=== PATIENT | male | born 1980 | race Caucasian/White ===

== ENCOUNTER → 2017-01-20 | Outpatient (CLI) | payer BC ==
[2017-01-20 17:01] LABS: CHLORIDE,CL 96 mmol/L (98-110); SODIUM,NA 132 mmol/L (136-146)
== END ==
LOC: MW.CHRC 16:27
PROVIDERS: ATTEND Family Medicine
DX: R56.9 Unspecified convulsions (principal)
CPT/HCPCS: 36415; 80053; 80183; 83036; 84443; 85025

== ENCOUNTER 2017-06-13 15:08 | Emergency (ER) | payer BC ==
[2017-06-13] MEDS ORDERED: Sodium Chloride 0.9% 2.5 ML Syringe FLUSH PRN (15:23)
[2017-06-13] MEDS ORDERED: Sodium Chloride 0.9% 1,000 ML IV ONE (15:23)
[2017-06-13] MEDS ORDERED: Sodium Chloride 0.9% 10 ML Syringe FLUSH PRN (15:23)
--- NOTE | 2017-06-13 15:27 | EDM.PDOC ---
ED HPI GENERAL MEDICAL PROBLEM - General Chief Complaint: Neurological Problem Stated Complaint: UNK Time Seen by Provider: 06/13/17 15:10 - History of Present Illness INITIAL COMMENTS - FREE TEXT/NARRATIVE: HISTORY AND PHYSICAL: History of present illness: The patient is a 36 y/o male with a long-standing history of seizures who was on Trileptal dosing which was changed to a once a day dosing as of June [address] Rod. The patient presents via EMS after having a seizure while at work today. According to bystanders he was in his chair at his desk and he stiffened up eyes rolled back in his head and he slid off the chair onto the floor. The patient recalls feeling very tired at his desk and the next thing he remembers is the paramedics. He states he is unsure if he missed a dose of his medications. He has been eating and drinking normally and has had no chest pain fever chills upper respiratory symptoms vomiting or diarrhea. Currently in the ED he has no complaints of headache neck pain back pain chest pain abdominal pain nausea or any extremity complaints as a result of the seizure. The patient says that he did not sleep well last evening or the night before and sleep deprivation can causes seizures. He has been very excited about the possibility that his is . The patient says he doesn't usually have loss of bowel or bladder with his seizures and he denies that it happened today. He also has no tongue pain or injuries that he is aware of. The patient initially told me that he had not had a seizure in one year but upon rethinking and discussing it with his his last seizure was 5 months ago. Review of systems: As per history of present illness and below otherwise all systems reviewed and negative. Past medical history: As per history of present illness and as reviewed below otherwise noncontributory. Surgical history: As per history of present illness and as reviewed below otherwise noncontributory. Social history: No reported history of drug or alcohol abuse. Family history: As per history of present illness and as reviewed below otherwise noncontributory. Physical exam: Gen.: Well-developed well-nourished man who is nontoxic and speaking clearly in the ED. Vital signs of the note by me. HEENT: Atraumatic, normocephalic, pupils reactive, negative for conjunctival pallor or scleral icterus, mucous membranes moist, throat clear, neck supple, nontender, trachea midline. There is no evidence of any tongue abrasion or contusions. There is no scalp deformities or tenderness and there are no midline step-offs in his defects of the cervical spine Lungs: Clear to auscultation, breath sounds equal bilaterally, chest nontender. Heart: S1S2, regular rate and rhythm no overt murmurs Abdomen: Soft, nondistended, nontender. Negative for masses or hepatosplenomegaly. Negative for costovertebral tenderness. Pelvis: Stable nontender. Genitourinary: Deferred. Rectal: Deferred. Extremities: Atraumatic, full range of motion without any defects or deficits negative for cords or calf pain. Neurovascular unremarkable. Neuro: Awake, alert, oriented. Cranial nerves II through XII unremarkable. Motor and sensory unremarkable throughout. Exam nonfocal. Skin: Normal turgor no evidence of any rashes or lesions Back: There are no midline step-offs in his defects of the thoracic or lumbar spine no posterior rib tenderness and no soft tissue injury such as abrasions ecchymosis or soft tissue swelling. Diagnostics: EKG CBC CMP troponin UA CT scan of the head Therapeutics: Seizure precautions IV O2 monitor IV fluids Please note the patient brought his prescription for Trileptal which is an extended release that the prescription directions state that they are 600 mg tablets and he is supposed to take 3 tablets every day. The number of prescribed pills on the bottle is #80 and they're only #78 present. The prescription was filled on June 07, 5 days ago, so the patient clearly has not been taking his medications as he should be down 15 pills not just 2. Now is stating that he had 10 tablets of the medication left over and another bottle so he may only missed 1 dose of medication. Patient has been stable in the ED without any issues or problems. I discussed with him at length that they need to speak with Dr. Rod and see her in the clinic as potentially the once a day dosing is not appropriate for him. He tells me that when he was on the twice a day dosing of the Trileptal he was doing much better in his opinion. 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 They're comfortable with waiting to see Dr. Rod in the clinic and he will try to sleep more and rest. Impression: Breakthrough Seizure with recent medication changes stable Definitive disposition and diagnosis as appropriate pending reevaluation and review of above. - Related Data Allergies Allergy/AdvReac Type Severity Reaction Status Date / Time Penicillins Allergy Rash Verified 06/13/17 15:11 Home Meds: Home Meds Levothyroxine 175 mcg PO ACBREAKFAST 12/17/16 [History] OXcarbazepine [Oxcarbazepine] 1,800 mg PO DAILY 12/17/16 [History] Past Medical History - Past Health History Medical/Surgical History: Denies Medical/Surgical History Neurological History: Reports: Seizure Endocrine/Metabolic History: Reports: Hypothyroidism - Past Surgical History HEENT Surgical History: Reports: Tonsillectomy Musculoskeletal Surgical History: Reports: Other (See Below) Social & Family History - Family History Family Medical History: Noncontributory Cardiac: Reports: [place], Stent Oncologic: Reports: Prostate - Tobacco Use Smoking Status *Q: Never Smoker Years of Tobacco use: 1 Packs/Tins Daily: 0.1 Second Hand Smoke Exposure: No - Caffeine Use Caffeine Use: Reports: Coffee, Energy Drinks - Recreational Drug Use Recreational Drug Use: No - Living Situation & Occupation Living situation: Reports: Occupation: Employed ED ROS GENERAL - Review of Systems Review Of Systems: ROS reveals no pertinent complaints other than HPI. ED EXAM, GENERAL - Physical Exam Exam: See Below (See dictation) Course - Vital Signs Last Recorded V/S: Last Vital Signs Temp 37.1 C 06/13/17 15:15 Pulse 85 06/13/17 16:28 Resp 14 06/13/17 16:28 BP 127/71 06/13/17 16:28 Pulse Ox 99 06/13/17 16:28 - Orders/Labs/Meds Orders: Active Orders 24 hr Category Date Time Status Cardiac Monitoring [RC] . DIRECTED Care 06/13/17 15:22 Active Communication Order [RC] STAT Care 06/13/17 15:23 Active EKG Documentation Completion [RC] STAT Care 06/13/17 15:22 Active Oxygen Therapy, ED [RC] ASDIRECTED Care 06/13/17 15:22 Active Pulse Oximetry [RC] ASDIRECTED Care 06/13/17 15:22 Active Sodium Chloride 0.9% [Saline Flush] Med 06/13/17 15:23 Active 10 ml FLUSH ASDIRECTED PRN Sodium Chloride 0.9% [Saline Flush] Med 06/13/17 15:23 Active 2.5 ml FLUSH ASDIRECTED PRN Saline Lock Insert [OM.PC] Stat Oth 06/13/17 15:22 Ordered Medication Orders Sodium Chloride (Saline Flush) 10 ml FLUSH ASDIRECTED PRN PRN Reason: Keep Vein Open Last Admin: 06/13/17 15:32 Dose: 10 ml Sodium Chloride (Saline Flush) 2.5 ml FLUSH ASDIRECTED PRN PRN Reason: Keep Vein Open Last Admin: 06/13/17 15:32 Dose: 2.5 ml Labs: Laboratory Tests 06/13/17 06/13/17 06/13/17 Range/Units 15:36 15:36 15:36 WBC 9.49 (4.0-11.0) K/uL RBC 4.90 (4.50-5.90) M/uL Hgb 15.8 (13.0-17.0) g/dL Hct 44.3 (38.0-50.0) % MCV 90.4 (80.0-98.0) fL MCH 32.2 H (27.0-32.0) pg MCHC 35.7 (31.0-37.0) g/dL RDW Std Deviation 41.0 (28.0-62.0) fl RDW Coeff of Missy 13 (11.0-15.0) % Plt Count 189 (150-400) K/uL MPV 10.00 (7.40-12.00) fL Neut % (Auto) 81.2 H (48.0-80.0) % Lymph % (Auto) 10.2 L (16.0-40.0) % Stanley % (Auto) 7.3 (0.0-15.0) % Eos % (Auto) 0.9 (0.0-7.0) % Baso % (Auto) 0.4 (0.0-1.5) % Neut # (Auto) 7.7 H (1.4-5.7) K/uL Lymph # (Auto) 1.0 (0.6-2.4) K/uL Stanley # (Auto) 0.7 (0.0-0.8) K/uL Eos # (Auto) 0.1 (0.0-0.7) K/uL Baso # (Auto) 0.0 (0.0-0.1) K/uL Nucleated RBC % 0.0 /100WBC Nucleated RBCs # 0 K/uL Sodium 134 L (136-146) mmol/L Potassium 4.0 (3.5-5.1) mmol/L Chloride 100 (98-110) mmol/L Carbon Dioxide 21 (21-31) mmol/L BUN 10 (6.0-23.0) mg/dL Creatinine 1.2 (0.6-1.5) mg/dL Est Cr Clr Drug Dosing 79.56 mL/min Estimated GFR (MDRD) > 60.0 ml/min Glucose 123 H (60-110) mg/dL Calcium 9.4 (8.8-10.8) mg/dL Total Bilirubin 0.3 (0.1-1.5) mg/dL AST 28 (5-40) IU/L ALT 38 (8-54) IU/L Alkaline Phosphatase 91 (40-150) Troponin I < 0.10 (0.0-0.29) NG/ML Total Protein 7.6 (6.0-8.0) g/dL Albumin 4.5 (3.5-5.0) g/dL Globulin 3.1 (2.0-3.5) g/dL Albumin/Globulin Ratio 1.5 (1.3-2.8) Meds: Medications Generic Name Dose Route Start Last Admin Trade Name Freq PRN Reason Stop Dose Admin Sodium Chloride 10 ml 06/13/17 15:23 06/13/17 15:32 Saline Flush FLUSH 10 ml ASDIRECTED PRN Administration Keep Vein Open Sodium Chloride 2.5 ml 06/13/17 15:23 06/13/17 15:32 Saline Flush FLUSH 2.5 ml ASDIRECTED PRN Administration Keep Vein Open Discontinued Medications Generic Name Dose Route Start Last Admin Trade Name Freq PRN Reason Stop Dose Admin Sodium Chloride 1,000 mls @ 999 mls/hr 06/13/17 15:23 06/13/17 15:31 Normal Saline IV 06/13/17 16:23 999 mls/hr STAT ONE Administration Departure - Departure Time of Disposition: 16:54 Disposition: Home, Self-Care 01 Condition: Good Clinical Impression: Breakthrough seizure - Discharge Information Forms: ED Department Discharge Additional Instructions: The following information is given to patients seen in the emergency department who are being discharged to home. This information is to outline your options for follow-up care. We provide all patients seen in our emergency department with a follow-up referral. The need for follow-up, as well as the timing and circumstances, are variable depending upon the specifics of your emergency department visit. If you don't have a primary care physician on staff, we will provide you with a referral. We always advise you to contact your personal physician following an emergency department visit to inform them of the circumstance of the visit and for follow-up with them and/or the need for any referrals to a consulting specialist. The emergency department will also refer you to a specialist when appropriate. This referral assures that you have the opportunity for followup care with a specialist. All of these measure are taken in an effort to provide you with optimal care, which includes your followup. Under all circumstances we always encourage you to contact your private physician who remains a resource for coordinating your care. When calling for followup care, please make the office aware that this follow-up is from your recent emergency room visit. If for any reason you are refused follow-up, please contact the [facility] emergency department at and ask to speak to the emergency department charge nurse. [facility] Specialty care-Neurology Professional [address], [address] [place] [address] Please call and be seen by Dr. Rod on Friday or Friday of next week to discuss her medications. Return to ER as needed and as discussed. Try to rest and sleep as much as possible. Stay hydrated - My Orders Last 24 Hours: My Active Orders 06/13/17 15:22 Cardiac Monitoring [RC] . DIRECTED EKG Documentation Completion [RC] STAT Oxygen Therapy, ED [RC] ASDIRECTED Pulse Oximetry [RC] ASDIRECTED Saline Lock Insert [OM.PC] Stat 06/13/17 15:23 Communication Order [RC] STAT Sodium Chloride 0.9% [Saline Flush] 10 ml FLUSH ASDIRECTED PRN Sodium Chloride 0.9% [Saline Flush] 2.5 ml FLUSH ASDIRECTED PRN - Assessment/Plan Last 24 Hours: My Active Orders 06/13/17 15:22 Cardiac Monitoring [RC] . DIRECTED EKG Documentation Completion [RC] STAT Oxygen Therapy, ED [RC] ASDIRECTED Pulse Oximetry [RC] ASDIRECTED Saline Lock Insert [OM.PC] Stat 06/13/17 15:23 Communication Order [RC] STAT Sodium Chloride 0.9% [Saline Flush] 10 ml FLUSH ASDIRECTED PRN Sodium Chloride 0.9% [Saline Flush] 2.5 ml FLUSH ASDIRECTED PRN
--- NOTE | 2017-06-13 16:13 | CT ---
EXAMINATION: Non contrast CT head. Coronal and sagittal reformats. HISTORY: Pain FINDINGS: No evidence of intra or extra axial hemorrhage, mass, midline shift, hydrocephalus or edema. No hypoattenuation changes in the major vascular territories to suggest acute infarct. No abnormal intracranial calcifications are detected. No evidence of substantial vascular calcifica tions. The orbits and globes are symmetric. Paranasal sinuses and mastoid air cells are well aerated without substantial findings. There is a mostly empty sella. Calvarium is intact. No evidence of skull fracture. IMPRESSION: No acute intracranial findings.
[2017-06-13 16:29] VITALS: BP 127/71
[2017-06-13 16:41] LABS: CHLORIDE,CL 100 mmol/L (98-110); SODIUM,NA 134 mmol/L (136-146)
== END 2017-06-13 17:06 | disposition home or self-care (01) ==
LOC: MW.ED 15:08
DX: R56.9 Unspecified convulsions (principal); E03.9 Hypothyroidism, unspecified; Z88.0 Allergy status to penicillin; Z79.899 Other long term (current) drug therapy; Z98.890 Other specified postprocedural states
CPT/HCPCS: 36415; 70450; 80053; 84484; 85025; 93005; 96360; 99285; J7040; 99284